=== PATIENT | male | born 1935 | race Caucasian/White ===

== ENCOUNTER → 2017-11-16 | Outpatient (CLI) | payer OTHER, MEDICARE | LOC: FIMAGING 12:34 | PROVIDERS: ATTEND Family Medicine | DX: S83.521A Sprain of posterior cruciate ligament of right knee, initial encounter (principal); S83.411A Sprain of medial collateral ligament of right knee, initial encounter; M71.21 Synovial cyst of popliteal space [Baker], right knee; I51.7 Cardiomegaly | CPT/HCPCS: 36415-PO; 80048-PO; 82607-90; 85025-PO ==